=== PATIENT | female | born 1950 | race African-American/Black ===

== ENCOUNTER 2016-12-20 19:53 | Emergency (ER) | payer MEDICARE, OTHER ==
[~2016-12-20] VITALS: Ht 157.5 cm; Wt 72.6 kg
[~2016-12-20 19:53] MED LIST: CRESTOR10 MG PO; GLIM1TAB2 PO; INSU100V13 SQ
[2016-12-20 20:10] VITALS: BP 153/83
--- NOTE | 2016-12-20 21:01 | PHYS DOC ---
Past Medical History Past Medical History: Diabetes-Type II, High Cholesterol Past Surgical History: Cholecystectomy, Hysterectomy Alcohol Use: None Drug Use: None Adult General Chief Complaint Chief Complaint: ALLERGIC REACTION HPI HPI Patient is a 66 year old female with a history of angioedema who presents with bilateral upper and lower lip swelling and cheek swelling that started this afternoon, gradual in onset, exactly like prior episodes of angioedema. She took 40 mg of prednisone and 50 mg of Benadryl by mouth prior to moving here. States she used ice packs on her lips and face prior to arrival. She has some improvement in her symptoms currently. She denies tongue swelling, throat swelling, voice change, dyspnea, difficulty swallowing. Denies nausea or vomiting, itching, pain, fever or chills. States she has been seen by an travel nurse and tested negative for allergies. She does not take any antihypertensives. Review of Systems Review of Systems Constitutional: Denies fever or chills [] Eyes: Denies change in visual acuity, redness, or eye pain [] HENT: Denies nasal congestion or sore throat [] Respiratory: Denies cough or shortness of breath [] Cardiovascular: No additional information not addressed in HPI [] GI: Denies abdominal pain, nausea, vomiting, bloody stools or diarrhea [] : Denies dysuria or hematuria [] Musculoskeletal: Denies back pain or joint pain [] Integument: Denies rash or skin lesions [] Neurologic: Denies headache, focal weakness or sensory changes [] Endocrine: Denies polyuria or polydipsia [] Allergies Allergies Allergies Coded Allergies Type Severity Reaction Last Updated Verified No Known Drug Allergies 06/01/15 No Physical Exam Physical Exam Constitutional: Well developed, well nourished, no acute distress, non-toxic appearance. [] HENT: Normocephalic, atraumatic, bilateral external ears normal, oropharynx moist, no oral exudates, nose normal. Upper and lower lips and cheeks swollen with slight rubor, nontender, no induration or crepitance [] Eyes: PERRLA, EOMI, conjunctiva normal, no discharge. [] Neck: Normal range of motion, no tenderness, supple, no stridor. [] Cardiovascular:Heart rate regular rhythm [] Lungs & Thorax: Bilateral breath sounds clear to auscultation [] Abdomen: Bowel sounds normal, soft, no tenderness. [] Skin: Warm, dry, no erythema, no rash. [] Back: Normal range of motion. [] Extremities: No tenderness, ROM intact, no edema. [] Neurologic: Alert and oriented X 3, normal motor function, normal sensory function, no focal deficits noted. [] Psychologic: Affect normal, judgement normal, mood normal. [] Current Patient Data Vital Signs Vital Signs Date Time Temp Pulse Resp B/P (MAP) Pulse Ox O2 Delivery O2 Flow Rate FiO2 12/20/16 20:10 98.5 81 20 153/83 (106) 96 Room Air 98.5 Course & Med Decision Making Course & Med Decision Making Pertinent Labs and Imaging studies reviewed. (See chart for details) She was observed here and had improvement in her symptoms without complete resolution. She would like to go home at this time. Strict return precautions given. She understands and agrees with plan. Dragon Disclaimer Dragon Disclaimer This electronic medical record was generated, in whole or in part, using a voice recognition dictation system. Departure Departure Impression: Primary Impression: Angioedema Disposition: HOME, SELF-CARE Condition: STABLE Referrals: MYRTLE ABREU (PCP) Patient Instructions: Angioedema, [id number] Additional Instructions: Follow-up with your primary care doctor within one week. Return for any concerns. Problem Qualifiers Primary Impression: Angioedema Encounter type: initial encounter Qualified Codes: T78.3XXA - Angioneurotic edema, initial encounter Brenda PIÑA MD Dec 20, 2016 21:01
== END 2016-12-20 21:06 | disposition home or self-care (01) ==
LOC: ER 19:53
DX: T78.3XXA Angioneurotic edema, initial encounter (principal); E11.9 Type 2 diabetes mellitus without complications; E78.00 Pure hypercholesterolemia, unspecified; Z90.49 Acquired absence of other specified parts of digestive tract; Z90.710 Acquired absence of both cervix and uterus; Y92.89 Other specified places as the place of occurrence of the external cause
CPT/HCPCS: 99283